=== PATIENT | female | born 1960 | race African-American/Black ===

== ENCOUNTER 2024-06-06 13:02 | Emergency (ER) | payer BC, MEDICAID ==
[~2024-06-06] VITALS: Ht 175.3 cm; Wt 70.0 kg
[2024-06-06 13:05] VITALS: O2SAT 98
[2024-06-06] MEDS: ACETAMINOPHEN 325MG TABLET PO ONE (16:22)
[2024-06-06] MEDS: LIDOCAINE 5% PATCH TOP SCH (16:24)
[2024-06-06 17:35] VITALS: BP 145/98; PULSE 78; RESP 18; TEMP 37.11408; O2SAT 96
== END 2024-06-06 18:18 | disposition home or self-care (01) ==
LOC: ER 13:02
DX: R51.9 Headache, unspecified (principal); I10 Essential (primary) hypertension; V49.9XXA Car occupant (driver) (passenger) injured in unspecified traffic accident, initial encounter; Y93.89 Activity, other specified; Y92.89 Other specified places as the place of occurrence of the external cause; Y99.8 Other external cause status
CPT/HCPCS: 73130; 99283; 99284